=== PATIENT | male | born 1955 | race Caucasian/White ===

== ENCOUNTER → 2016-12-20 | Outpatient (CLI) | payer OTHER ==
[~2016-12-20] MED LIST: GADOBUTROL 10 ML VIAL IVP ONE
== END ==
LOC: FIMAGING 07:45
PROVIDERS: ATTEND Internal Medicine Hematology & Oncology
DX: C71.2 Malignant neoplasm of temporal lobe (principal)
CPT/HCPCS: A9585

== ENCOUNTER → 2017-03-26 | Outpatient (CLI) | payer OTHER | LOC: FIMAGING 07:34 | PROVIDERS: ATTEND Internal Medicine Hematology & Oncology | DX: C71.2 Malignant neoplasm of temporal lobe (principal); R56.9 Unspecified convulsions | CPT/HCPCS: A9585 ==

== ENCOUNTER 2017-04-01 13:58 | Inpatient (IN) | payer OTHER ==
[2017-04-01] MEDS ORDERED: VANCOMYCIN 1 GM in NS 250 ML IV ONE (15:03)
[2017-04-01] MEDS ORDERED: IOPAMIDOL (ISOVUE-300) 100 ML BTL ONE (15:11)
[2017-04-01 15:19] LABS: PLATELET COUNT 194 10^3/uL (150-400)
--- NOTE | 2017-04-01 15:29 | EDPHY ---
H & P Stated Complaint: large, painful bump near buttocks Source: Patient - Medical/Surgical History Hx Asthma: No Hx Chronic Respiratory Disease: No Hx Diabetes: No Hx Cardiac Disease: No Hx Renal Disease: No Hx Cirrhosis: No Hx Alcoholism: No Hx HIV/AIDS: No Hx Splenectomy or Spleen Trauma: No Other PMH: Brain CA, thyroid - Social History Smoking Status: Never smoked Time Seen by Provider: 04/01/17 14:39 HPI/ROS: CHIEF COMPLAINT: Boil and buttock History by patient HISTORY OF PRESENT ILLNESS: 61-year-old man with a history of brain cancer currently on maintenance chemotherapy every 2 weeks presents complaining of pain redness and swelling of his right buttock near his anus. Patient states he began with what he thought was a pimple several weeks ago but over the past 2 or 3 days has gotten significantly worse and more painful. He has been unable to defecate due to pain. He denies any fever chills, nausea vomiting or abdominal pain. He states that he thinks it has been "something going on the area for quite some time. He denies any drainage from the area. He is covered it with bacitracin but applied no other treatments. REVIEW OF SYSTEMS: As in HPI, and all other systems reviewed and are negative (Radha Salcedo) - Physical Exam Exam: General Appearance: Alert, nontoxic-appearing. Eyes: Pupils equal and round, no pallor or injection. Mouth: Mucous membranes moist. Respiratory: Normal, effort, lungs are clear to auscultation. No wheezes, rales or rhonchi. Cardiovascular: Regular rate and rhythm. S1, S2, no murmurs, gallops or rubs appreciated Gastrointestinal: bowel sounds present, Abdomen is soft and is nondistended nontender, no masses Rectal: Positive 10 x 10 cm area of erythema, tenderness and induration in the area between 7 and 9 o'clock but no obvious fluctuance, positive anterior tenderness on rectal exam Back: No CVA tenderness, no bony tenderness Neurological: Awake, alert and oriented x 3, no pronator drift, normal gait, no pronator drift Skin: Warm and dry, no rashes. Musculoskeletal: No deformities or tenderness. Extremities: full range of motion, no edema Psychiatric: Patient has normal affect, there is no agitation. (Radha Salcedo) Constitutional: Initial Vital Signs Temperature (C) 36.5 C 04/01/17 14:14 Heart Rate 96 04/01/17 14:14 Respiratory Rate 20 04/01/17 14:14 Blood Pressure 147/108 H 04/01/17 14:14 O2 Sat (%) 95 04/01/17 14:14 O2 Delivery Mode Room Air O2 (L/minute) 2 Allergies/Adverse Reactions: Augmentin Allergy (Unknown, Uncoded 04/01/17 14:13) Home Medications: Medication Instructions Recorded Atorvastatin Calcium [Lipitor 20 04/01/17 mg (*)] LEVETIRACETAM [Keppra 1000 mg] 04/01/17 LEVOTHYROXINE SODIUM [Tirosint 04/01/17 50mcg] Medical Decision Making - Diagnostics Imaging Results: Imaging Impressions Abdomen CT 04/01/17 15:07 Impression: 1. Inflammation and phlegmon in the low right gluteal crease. No well defined abscess/fluid collection. 2. No intraabdominal inflammatory process, free fluid, or abscess. 3. Small, probably benign 3 x 4 mm right middle lobe pulmonary nodule. Findings discussed with emergency department physician, Dr. Fink on April 01, 2017 at 1658 hours. ED Course/Re-evaluation: 61-year-old man immuno per suppressed due to his brain tumor presents with area of perirectal versus pearl anus cellulitis versus abscess. I have ordered IV blood cultures, labs and IV antibiotics and CT scan to better delineate the lesion. I will transfer care to Dr. Fink for final disposition pending results of the CT scan. (Radha Salcedo) CT scan with evidence of induration, cannot rule out very early abscess however no obvious fluid collection. No involvement within the abdomen and pelvis, anal and rectal wall do not appear to be involved. Impression Cellulitis Possibly impending abscess Patient has been given Levaquin, Flagyl, vancomycin Discussed with Dr. Han Godfrey Patient to be admitted at [facility] (Rashmi Fink) - Data Points Laboratory Results: Laboratory Results 04/01/17 15:00 04/01/17 15:00 04/01/17 04/01/17 04/01/17 15:34 15:00 15:00 WBC 8.50 10^3/uL 10^3/uL (3.80-9.50) RBC 4.22 10^6/uL L 10^6/uL (4.40-6.38) Hgb 14.8 g/dL g/dL (13.7-17.5) Hct 41.5 % % (40.0-51.0) MCV 98.3 fL fL (81.5-99.8) MCH 35.1 pg H pg (27.9-34.1) MCHC 35.7 g/dL g/dL (32.4-36.7) RDW 12.8 % % (11.5-15.2) Plt Count 194 10^3/uL 10^3/uL (150-400) MPV 9.2 fL fL (8.7-11.7) Neut % (Auto) 83.4 % H % (39.3-74.2) Lymph % (Auto) 6.4 % L % (15.0-45.0) Shelby % (Auto) 9.3 % % (4.5-13.0) Eos % (Auto) 0.6 % % (0.6-7.6) Baso % (Auto) 0.1 % L % (0.3-1.7) Nucleat RBC Rel Count 0.0 % % (0.0-0.2) Absolute Neuts (auto) 7.09 10^3/uL H 10^3/uL (1.70-6.50) Absolute Lymphs (auto) 0.54 10^3/uL L 10^3/uL (1.00-3.00) Absolute Monos (auto) 0.79 10^3/uL 10^3/uL (0.30-0.80) Absolute Eos (auto) 0.05 10^3/uL 10^3/uL (0.03-0.40) Absolute Basos (auto) 0.01 10^3/uL L 10^3/uL (0.02-0.10) Absolute Nucleated RBC 0.00 10^3/uL 10^3/uL (0-0.01) Immature Gran % 0.2 % % (0.0-1.1) Immature Gran # 0.02 10^3/uL 10^3/uL (0.00-0.10) VBG Lactic Acid 1.1 mmol/L mmol/L (0.7-2.1) Sodium 137 mEq/L mEq/L (135-145) Potassium 4.1 mEq/L mEq/L (3.5-5.2) Chloride 100 mEq/L mEq/L (97-110) Carbon Dioxide 25 mEq/l mEq/l (22-31) Anion Gap 12 mEq/L mEq/L (8-16) BUN 17 mg/dL mg/dL (7-23) Creatinine 0.9 mg/dL mg/dL (0.7-1.3) Estimated GFR > 60 Glucose 126 mg/dL H mg/dL (70-100) Calcium 8.7 mg/dL mg/dL (8.5-10.4) Medications Given: Discontinued Medications Hydromorphone HCl (Dilaudid) 1 mg IVP EDNOW ONE Stop: 04/01/17 15:53 Last Admin: 04/01/17 15:55 Dose: 1 mg Hydromorphone HCl (Dilaudid) 1 mg IVP ONCE ONE Stop: 04/01/17 18:21 Last Admin: 04/01/17 18:30 Dose: 0.5 mg Levofloxacin/Dextrose (Levaquin 750 Mg (Premix)) 150 mls @ 100 mls/hr IV EDNOW ONE PRN Reason: Protocol Stop: 04/01/17 16:35 Last Admin: 04/01/17 15:45 Dose: 150 mls Metronidazole/Sodium Chloride (Flagyl 500 Mg (Premix)) 100 mls @ 100 mls/hr IV EDNOW ONE PRN Reason: Protocol Stop: 04/01/17 16:05 Last Admin: 04/01/17 16:34 Dose: 100 mls Vancomycin HCl 1 gm/ Sodium (Chloride) 250 mls @ 250 mls/hr IV EDNOW ONE PRN Reason: Protocol Stop: 04/01/17 16:02 Last Admin: 04/01/17 16:51 Dose: 250 mls
[2017-04-01] MEDS ORDERED: HYDROmorphONE/DILAUDID 1 MG/ML INJ ONE ×2 (15:53→18:33)
[2017-04-01] MEDS: HYDROmorphONE/DILAUDID 1 MG/ML INJ IVP ONE ×2 (15:55→18:35)
[2017-04-01] MEDS ORDERED: HYDROmorphONE/DILAUDID 1 MG/ML INJ IVP ONE (18:20)
[2017-04-01] MEDS ORDERED: HYDROmorphONE/DILAUDID 1 MG/ML INJ IVP PRN ×2 (21:09→22:35)
[2017-04-01] MEDS ORDERED: ACETAMINOPHEN 325 MG TAB PO PRN (21:09)
[2017-04-01] MEDS ORDERED: ONDANSETRON DISINTEGRATING 4 MG TAB PO PRN (21:09)
[2017-04-01] MEDS ORDERED: oxyCODONE IR 5 MG TAB PO PRN (21:09)
[2017-04-01] MEDS ORDERED: ONDANSETRON 4 MG/2 ML VIAL IVP PRN ×2 (21:09→22:35)
[2017-04-01] MEDS: ERTAPENEM 1 GM VIAL IV SCH (21:46)
--- NOTE | 2017-04-01 21:46 | SOAPPROG ---
SOAP Progress Note Assessment/Plan: Assessment: 61-YEAR-OLD MALE UNDERGOING CHEMO AND RADIATION FOR AN ASTROCYTOMA DEVELOPED SORENESS IN HIS RIGHT BUTTOCK FOR THE LAST 3 DAYS WITH A LOW-GRADE FEVER AND SEVERE TENDERNESS WBC IS NORMAL HAD A SIMILAR EPISODE 3 YEARS AGO WHICH RESOLVED WITHOUT SURGERY CHEST CLEAR/COR REGULAR RHYTHM/ ABDOMEN SOFT/ RECTAL EXAM REVEALS A TENDER FLUCTUANT ERYTHEMATOUS AREA IN THE RIGHT BUTTOCK IMPRESSION RIGHT PERIRECTAL ABSCESS Plan: INCISION AND DRAINAGE IN THE OR 04/01/17 21:42 Objective: Vital Signs Temp Pulse Resp BP Pulse Ox 37.3 C 92 18 136/74 H 91 L 04/01/17 20:28 04/01/17 20:28 04/01/17 20:28 04/01/17 20:28 04/01/17 20:28 03/31/17 04/01/17 04/02/17 05:59 05:59 05:59 Intake Total 450 Balance 450 ICD10 Worksheet Patient Problems: Problems Problem Status Onset Perirectal abscess Acute - ICD10 Problem Qualifiers (1) Perirectal abscess
--- NOTE | 2017-04-01 21:46 | GHP ---
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 It sounds like he has had problems here in the past, but he has no admissions to this hospital, no s urgeries. He has had some subjective fevers and chills. He says his last bowel movement was a coupl e days ago, and it was not necessarily painful. He thought there was a pimple there over the last co uple weeks, last 2-3 days gotten worse and more painful. Per the ER, they said he is unable to defec ate due to pain. This is a slightly different story than he gives me. There have been no fever, chi lls. There has been no drainage from the area. He is covered with bacitracin. REVIEW OF SYSTEMS: Complete 10-point review of systems conducted, negative except as noted in the HP I. PAST MEDICAL HISTORY: Astrocytoma of the thalamus, no surgery. Has been receiving Avastin. His las t dexamethasone was quite some time ago. ALLERGIES: Augmentin, which he gets a rash from. MEDICATIONS ARE: Atorvastatin, levetiracetam, levothyroxine. SOCIAL HISTORY: Occasional alcohol. No tobacco. 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 FAMILY HISTORY: Reviewed and unremarkable. PHYSICAL EXAMINATION: VITAL SIGNS: Temp 37.3, blood pressure 136/74, pulse 92, breathing 18 times a minute, 91% on room air. GENERAL: Acute distress. Flat affect. HEENT: Sclerae anicteric. Oropharynx clear. Mucous membranes are moist. NECK: Supple. No lymphadenopathy or JVD. LUNGS: Clear to auscultation bilaterally. HEART: S1, S2. ABDOMEN: Soft, nontender, nondistended. LOWER EXTREMITIES: Without edema. Calves are nontender. SKIN: Without rash. His exam shows indurated area in the lower medial quadrant of his buttock. I d o not necessarily fluctuance, but exam is somewhat limited by pain. It is indurated and w arm and erythematous. LABORATORY DATA: White count 8.5, hematocrit 41, platelets are 194,000. Venous lactate 12.1. Sodiu m 137, potassium 4.1, chloride 100, bicarb 25, BUN 17, creatinine 0.9, glucose 126. CT of the abdomen shows phlegmon without true abscess in the right lower gluteal crease. There is no free fluid in the abdomen noted, no abscess in the abdomen. I have discussed the case with Dr. Clint Castañeda. ASSESSMENT/PLAN: A 61-year-old gentleman with astrocytoma here with buttock cellulitis with concern for potential abscess requiring incision and drainage. 1. Cellulitis. He is started on vancomycin, levofloxacin, Flagyl, which would be reasonable, but I transitioned him to ertapenem, Flagyl. 2. Question abscess. I will have Surgery see him tonight. We did discuss his Avastin therapy. 3. Code status. Do not resuscitate. 4. Prophylaxis. Pharmacologic prophylaxis indicated. Start on low-molecular heparin. DISPOSITION: Inpatient status. /[id number]/MODL
[2017-04-01] MEDS: NS 1,000 ML IV SCH (21:57)
--- NOTE | 2017-04-01 22:19 | PDANEPAE ---
ANE History of Present Illness here for I and D buttock ANE Past Medical History - Cardiovascular History Hx Hypertension: No Hx Arrhythmias: No Hx Chest Pain: No Hx Coronary Artery / Peripheral Vascular Disease: No Hx CHF / Valvular Disease: No Hx Palpitations: No - Pulmonary History Hx COPD: No Hx Asthma/Reactive Airway Disease: No Hx Recent Upper Respiratory Infection: No Hx Oxygen in Use at Home: No Hx Sleep Apnea: No Sleep Apnea Screening Result - Last Documented: Positive - Endocrine History Hx Diabetes: No Hypothyroid: Yes Hyperthyroid: No Obesity: no - Renal History Hx Renal Disorders: No - Liver History Hx Hepatic Disorders: No - Neurological & Psychiatric Hx Hx Neurological and Psychiatric Disorders: Yes Neurological / Psychiatric History Comment: astrocytoma diagnosed 2013 on keppra for seizures - Cancer History Hx Cancer: Yes - Chronic Pain History Chronic Pain: No ANE Review of Systems Review of systems is: negative Review of Systems: ANE Patient History - Allergies Allergies/Adverse Reactions: Augmentin Allergy (Severe, Uncoded 04/01/17 22:12) Hives - Home Medications Home medications: home medication list seen and reviewed Home Medications: Levothyroxine [Synthroid 125 mcg (*)] 125 mcg PO DAILY06 04/01/17 [Last Taken Unknown] Multivitamins [Multivitamin (*)] 1 each PO DAILY 04/01/17 [Last Taken Unknown] Rosuvastatin Calcium [Rosuvastatin Calcium] 5 mg PO HS 04/01/17 [Last Taken Unknown] levETIRAcetam [Levetiracetam] 500 mg PO BID 04/01/17 [Last Taken Unknown] - NPO status NPO Status: no food or drink >8 hours NPO Since - Liquids (Date): 04/01/17 NPO Since - Liquids (Time): 21:35 NPO Since - Solids (Date): 04/01/17 NPO Since - Solids (Time): 21:35 - Anes Hx Anes Hx: no prior problems - Smoking Hx Smoking Status: Never smoked ANE Labs/Vital Signs - Labs Result Diagrams: 04/01/17 15:00 04/01/17 15:00 - Vital Signs Vital Signs: reviewed preoperatively; see RN documention for details Blood Pressure: 136/74 Heart Rate: 92 Respiratory Rate: 18 O2 Sat (%): 91 Height: 172.72 cm Weight: 84.9 kg ANE Physical Exam - Airway Neck exam: FROM Mallampati Score: Class 1 - Pulmonary Pulmonary: no respiratory distress - Cardiovascular Cardiovascular: regular rate and rhythym - ASA Status ASA Status: III, E ANE Anesthesia Plan Anesthesia Plan: GA w LMA
[2017-04-01] MEDS ORDERED: BUPIVACAINE 0.5% 30 ML SDV ONE (22:27)
[2017-04-01] MEDS ORDERED: NALOXONE HCL 0.4 MG/ML INJ IVP PRN (22:35)
[2017-04-01] MEDS ORDERED: DEXAMETHASONE 4 MG/ML VIAL IVP PRN (22:35)
[2017-04-01] MEDS ORDERED: LR 500 ML IV PRN (22:35)
[2017-04-01] MEDS ORDERED: PROMETHAZINE HCL 25 MG/ML INJ IVP PRN (22:35)
[2017-04-01] MEDS ORDERED: ALBUTEROL 3 ML DEYVIAL IH PRN (22:35)
[2017-04-01] MEDS ORDERED: fentaNYL 100 MCG/2 ML INJ IVP PRN (22:35)
[2017-04-01] MEDS ORDERED: PROPOFOL/EMULSION 500 MG/50 ML BOTTLE IV ONE (22:36)
[2017-04-01] MEDS ORDERED: fentaNYL 100 MCG/2 ML INJ ONE (22:39)
[2017-04-01] MEDS ORDERED: DEXAMETHASONE 4 MG/ML VIAL ONE (22:47)
[2017-04-01] MEDS ORDERED: ONDANSETRON 4 MG/2 ML VIAL ONE (22:47)
--- NOTE | 2017-04-01 23:22 | POSTOPPROG ---
Post Op Note Date of Operation: 04/01/17 Surgeon: Pop Castañeda Anesthesiologist: BRANDI Anesthesia: GET(General Endotracheal) Pre-op Diagnosis: RT PERIRECTAL ABSCESS Post-op Diagnosis: SAME Indication: PAIN, INFECTION Procedure: I&D RT PERIRECTAL ABSCESS Findings: 30CC ABSCESS, NO FISTULA IDENTIFIED Inf/Abcess present in the surg proc area at time of surgery?: Yes Depth: Deep Incisional (Fascial) EBL: Minimal Complications: 0 Specimen(s): C&S
--- NOTE | 2017-04-01 23:27 | POSTANESTH ---
Post Anesthetic Evaluation Cardiovascular Status: Normal, Stable Respiratory Status: Normal, Stable Level of Consciousness/Mental Status: Mildly Sleepy, Arousable Pain Control: Adequate, Prn Tx Ordered Nausea/Vomiting Control: Adequate, Prn Tx Ordered Complications Possibly Related to Anesthesia: None Noted
[2017-04-01] MEDS ORDERED: levETIRAcetam 500 MG TAB PO SCH (23:39)
[2017-04-01] MEDS ORDERED: D5W 1/2 NS W/ 20 KCl/L 1,000 ML IV SCH (23:45)
[2017-04-02] MEDS: levETIRAcetam 500 MG TAB PO SCH ×3 (00:37→20:44)
[2017-04-02] MEDS: KETOROLAC 15 MG/1 ML SDV IVP SCH ×5 (00:37→23:03)
[2017-04-02] MEDS: NS 1,000 ML IV SCH (04:57)
[2017-04-02 05:05] LABS: PLATELET COUNT 173 10^3/uL (150-400)
[2017-04-02 05:14] LABS: INR 1.05 (0.83-1.16); PROTIME(PATIENT) 13.9 SEC (12.0-15.0)
[2017-04-02] MEDS: VANCOMYCIN HCL/NORMAL SALINE 250 ML IV SCH ×2 (05:14→17:36)
[2017-04-02] MEDS: LEVOTHYROXINE 125 MCG TAB PO SCH (05:15)
[2017-04-02] MEDS: ENOXAPARIN 40 MG/0.4 ML SYR SC SCH (08:18)
[2017-04-02] MEDS: MULTIVITAMINS 1 EACH TAB PO SCH (08:18)
[2017-04-02] MEDS: ERTAPENEM 1 GM VIAL IV SCH (08:21)
--- NOTE | 2017-04-02 08:23 | HOSPPROG ---
Hospitalist Progress Note Assessment/Plan: Patient is a 61-year-old gentleman. He has a past medical history of astrocytoma. He presented to the emergency room with several days of pain in his buttock area. Today is my 1st encounter with the patient. Chart reviewed. * right perirectal abscess Status post I&D On ertapenem and vanc ruslan w surgical team will ask ID to weigh in, patient would like to be dc today has significant erythema * history of astrocytoma on Avastin therapy *Plan: Dr Gary luo ID to see Subjective: Ivan has pain at the right gluteus area, anxious to go home. Objective: Vital Signs Temp Pulse Resp BP Pulse Ox 36.6 C 64 18 122/87 H 96 04/02/17 08:00 04/02/17 08:00 04/02/17 08:00 04/02/17 08:00 04/02/17 08:00 Microbiology 04/01/17 23:05 Mycobacterial Smear (CARLOS) - Final Buttock - Eswab Mycobacterial Culture - Final Laboratory Results 04/02/17 04:25 04/02/17 04:25 04/01/17 04/02/17 04/03/17 05:59 05:59 05:59 Intake Total 1100 Output Total 5 Balance 1095 PT 13.9 SEC (12.0-15.0) 04/02/17 04:25 INR 1.05 (0.83-1.16) 04/02/17 04:25 - Physical Exam Constitutional: no apparent distress, appears nourished Eyes: PERRL Ears, Nose, Mouth, Throat: hearing normal Respiratory: no respiratory distress Gastrointestinal: normoactive bowel sounds Skin: warm, other (right gluteus drain removed by surgery, tunnels in, surrounding area with redness, swelling) Musculoskeletal: full muscle strength Neurologic: AAOx3 Psychiatric: interacting appropriately ICD10 Worksheet Patient Problems: Problems Problem Status Onset Perirectal abscess Acute
[2017-04-02] MEDS ORDERED: levETIRAcetam 500 MG TAB PO SCH (09:00)
--- NOTE | 2017-04-02 09:36 | ASMTCASEMG ---
Living Arrangements What is your living Answers: With Spouse arrangement? Who do you live with? Type Of Residence What kind of residence do Answers: House you live in? Discharge Plan Comments Coordination Status Comments Notes: Pt is a 61 y/o man admitted for right gluteal cellulitis. Dr. Castañeda performed drainage of perirectal abscess. OT has been ordered and awaiting recommendations. Pt will most likely d/c independent when medically stable. CM available for d/c needs. Plan: Independent Date Signed: 04/02/2017 09:35 AM Electronically Signed By:SEAN Murray
--- NOTE | 2017-04-02 10:32 | GCON ---
[f rep st] CONSULTATION DATE OF CONSULTATION: 04/01/2017 HISTORY OF PRESENT ILLNESS: A 61-year-old male who is undergoing chemotherapy and radiation therapy for an astrocytoma. He presents today with pain in his right buttock, which was approximately 3 days in duration. Appears to have a very tender and fluctuant area. He had a similar episode 2 to 3 years ago which resolved spontaneously. He was seen at this time for I and D of this area. PAST MEDICAL HISTORY: Astrocytoma for which he has had no surgery. No other major surgeries or hospitalizations. ALLERGIES: Augmentin. MEDICATIONS: Lipitor, Keppra, and Synthroid. REVIEW OF SYSTEMS: No major other medical problems on a full 10-point review of systems. Specifically, he does not smoke. Denies any cardiac history. FAMILY HISTORY: Noncontributory. PHYSICAL EXAMINATION: GENERAL: An alert, cooperative 61-year-old male in no acute distress. VITAL SIGNS: He has low-grade temperature. CHEST: Clear. CARDIAC: Regular rhythm. ABDOMEN: Soft and nontender. GENITALIA: Normal. EXTREMITIES: Benign with full pulses, full range of motion. RECTAL: Reveals a fluctuant erythematous area in his right buttock. IMPRESSION: Perirectal abscess. PLAN: I and D. Risks and options fully discussed. /[id number]/MODL MTDD
--- NOTE | 2017-04-02 10:58 | PDMN ---
Medical Necessity Medical necessity: Patient meets inpatient criteria per physician note and MCG M -70 Cellulitis (hx of astrocytoma on Avastin therapy, presents with R buttock pain, subjective fevers and chills; CT shows phlegmon R gluteal fold; anticipated LOS > 2 midnights for emergent I&D of R perirectal abscess by surgery and ongoing IV antibiotics.)
--- NOTE | 2017-04-02 12:16 | SOAPPROG ---
SOAP Progress Note Assessment/Plan: Assessment/Plan: 61 Y M hx of astrocytoma on avastin s/p I&D of perianal abscess. POD#1. Changed dressing today. Wound is clean. Patient is very tender. Seen with hospitalist. Possible ID consult. Possibly home tomorrow if erythema and induration improves. S: pain is better, but dressing change was very painful. no fever. O: alert, nad, nontoxic appearing mmm, no jaundice no wob wound: +residual erythema and induration. no malodor. wound clean but narrow and difficult to view base. 04/02/17 12:16 Objective: Vital Signs Temp Pulse Resp BP Pulse Ox 36.6 C 67 16 122/77 H 92 04/02/17 12:00 04/02/17 12:00 04/02/17 12:00 04/02/17 12:00 04/02/17 12:00 Microbiology 04/01/17 23:05 Gram Stain - Final Buttock - Eswab 04/01/17 23:05 Mycobacterial Smear (CARLOS) - Final Buttock - Eswab Mycobacterial Culture - Final Laboratory Results 04/02/17 04:25 04/02/17 04:25 04/01/17 04/02/17 04/03/17 05:59 05:59 05:59 Intake Total 1100 Output Total 5 Balance 1095 PT 13.9 SEC (12.0-15.0) 04/02/17 04:25 INR 1.05 (0.83-1.16) 04/02/17 04:25 ICD10 Worksheet Patient Problems: Problems Problem Status Onset Perirectal abscess Acute
[2017-04-02] MEDS ORDERED: MAGNESIUM HYDROXIDE 30 ML UDCUP PO PRN (12:19)
[2017-04-02] MEDS ORDERED: LACTULOSE 20 GM/30 ML UDCUP PO PRN (12:19)
[2017-04-02] MEDS ORDERED: BISACODYL 10 MG SUPP PR PRN (12:19)
[2017-04-02] MEDS: SENNOSIDES/DOCUSATE SODIUM TAB PO SCH ×2 (13:55→20:45)
--- NOTE | 2017-04-02 14:45 | ASMTCMCOM ---
CM Note CM Note Notes: Therapies have been ordered and they are recommending inpatient rehab. CM met w/ pt for dispo planning. Pt is not agreeable to going to SNF or inpatient rehab. Pt would like to d/c home. Pt is agreeable to continuing w/ [facility], PT, OT and RN. CM to follow. Plan: [facility], PT, OT, RN Date Signed: 04/02/2017 02:44 PM Electronically Signed By:SEAN Murray
[2017-04-02] MEDS: POLYETHYLENE GLYCOL 3350 17 GM PKT PO SCH (15:54)
[2017-04-02] MEDS ORDERED: TEMAZEPAM 15 MG CAP PO PRN (17:11)
--- NOTE | 2017-04-02 19:39 | GCON ---
[f rep st] CONSULTATION INPATIENT INFECTIOUS DISEASE CONSULTATION REFERRING PHYSICIAN: Pop Castañeda MD REASON FOR REFERRAL: Perirectal abscess. HISTORY OF PRESENT ILLNESS: Patient is a 61-year-old male who was admitted to [facility] through the emergency room on 04/01/17. Patient is dealing with an overlying diagnosis of astrocy veto. He is currently taking Avastin chemotherapy. He presented with a several-day history of pain in his buttock. He does have a history of having the same issue which did remit spontaneously. On t his visit, he admitted to fevers and chills. Patient denied any drainage from the area. Patient was seen by General Surgery who performed an incision and drainage in the evening of 04/01/17. Patient is currently resting comfortably in his hospital bed. He is accompanied by his . Reports no fev ers or chills overnight. Patient had been covered with ertapenem and vancomycin empirically. PAST MEDICAL HISTORY: Astrocytoma. Patient has not had surgery. PAST SURGICAL HISTORY: None noted. MEDICATIONS: Antibiotics. 1. Vancomycin. 2. Ertapenem. ALLERGIES: Patient notes a rash to penicillin. SOCIAL HISTORY: Occasional alcohol use. No tobacco use. FAMILY HISTORY: Noncontributory. REVIEW OF SYSTEMS: Other than the that detailed above in History of Present Illness, comprehensive 1 0-system review is negative. PHYSICAL EXAMINATION: VITAL SIGNS: Temperature maximum 36.9, temperature current 36.7, heart rate i s 60, respiratory rate is 18, blood pressure is 118/72. GENERAL: Patient is a well-formed, well-nou rished older male in no acute distress. He is not toxic in appearance. He is alert and oriented x3. He has a pleasant demeanor. HEENT: Normocephalic for age. Atraumatic. No scleral icterus. No o ral lesion. No drainage from the nares. Eyes: Lids and conjunctivae are within normal limits. Pupils are equal and round bilaterally. NECK : Supple. No meningismus. SKIN: Warm and dry to the touch. No rash or lesion noted. Patient has operative dressing over the perirectal region. LABORATORY DATA: Patient has a CBC dated 04/02/17, shows white blood cell count of 9.6, hemoglobin o f 13.3, hematocrit 38.3, platelet count of 173. Differential is left shifted with 95% segmented neut rophils. Serum chemistries on 04/02/17, show sodium of 139, potassium 4.7, chloride of 104, bicarbon ate of 21, BUN of 18, creatinine 1.0. Vancomycin trough on 04/02/17, is 6.1. MICROBIOLOGIC DATA: Patient has operative culture dated 04/01/17. Gram stain shows 1+ gram-positive cocci. Cultures no growth to date. ASSESSMENT: Perirectal abscess, status post incision and drainage. Patient is covered with vancomyc in and ertapenem. Given the gram-positive cocci on Gram stain, we will continue with both the vancom ycin and ertapenem in the short term. Will wait to see if the culture allows us to be more specific with therapy. I explained this in detail to the patient. Patient is very eager to be discharged shivam e. If we get identification from the culture, it is hopeful that we could amend his antibiotic use t o a focused oral agent. PLAN: 1. Continue vancomycin and ertapenem for now. 2. Follow up on culture data. /[id number]/MODL
--- NOTE | 2017-04-02 20:29 | GOP ---
[f rep st] OPERATIVE REPORT DATE OF OPERATION: 04/01/2017 SURGEON: Pop Castañeda MD PREOPERATIVE DIAGNOSIS: Right perirectal abscess. POSTOPERATIVE DIAGNOSIS: Right perirectal abscess. PROCEDURE PERFORMED: Exam under anesthesia, and incision and drainage of perirectal abscess. FINDINGS: Patient was found to have a 30 cc abscess in the right perirectal space. No fistula could be identified. DESCRIPTION OF PROCEDURE: The patient was taken to the operating room where he received satisfactory general endotracheal anesthesia by Dr. Tuttel, placed in lithotomy position, prepped and draped in u sual sterile fashion. A transverse incision was made over the fluctuant area in the right buttock an d a large amount of pus was freed. This was cultured, suctioned clear and irrigated clear. The cavi ty was examined. No fistula tract to the rectum could be identified either from the abscess cavity o r intra-anally on inspection. The area was probed but no connection could be demonstrated. Hemostas is was obtained. The wound was infiltrated with Marcaine and then packed with iodoform gauze. He to lerated the procedure well. There were no complications. He was taken to the recovery room in good condition. /[id number]/MODL
[2017-04-02] MEDS: MELATONIN 3 MG TAB PO SCH (20:44)
[2017-04-02] MEDS: ROSUVASTATIN CALCIUM 10 MG TAB PO SCH (20:45)
[2017-04-03 05:02] LABS: PLATELET COUNT 164 10^3/uL (150-400)
[2017-04-03] MEDS: VANCOMYCIN HCL/NORMAL SALINE 250 ML IV SCH ×2 (05:03→16:56)
[2017-04-03] MEDS: KETOROLAC 15 MG/1 ML SDV IVP SCH ×4 (05:03→23:59)
[2017-04-03] MEDS: LEVOTHYROXINE 125 MCG TAB PO SCH (05:03)
[2017-04-03] MEDS: POLYETHYLENE GLYCOL 3350 17 GM PKT PO SCH (08:53)
[2017-04-03] MEDS: SENNOSIDES/DOCUSATE SODIUM TAB PO SCH ×2 (08:54→20:03)
[2017-04-03] MEDS: MULTIVITAMINS 1 EACH TAB PO SCH (08:54)
[2017-04-03] MEDS: levETIRAcetam 500 MG TAB PO SCH ×2 (08:54→20:04)
[2017-04-03] MEDS: ERTAPENEM 1 GM VIAL IV SCH (08:58)
[2017-04-03] MEDS: ENOXAPARIN 40 MG/0.4 ML SYR SC SCH (09:08)
--- NOTE | 2017-04-03 09:54 | HOSPPROG ---
Hospitalist Progress Note Assessment/Plan: Patient is a 61-year-old gentleman. He has a past medical history of astrocytoma. He presented to the emergency room with several days of pain in his buttock area. * right perirectal abscess Status post I&D On ertapenem and vanc evaluated w surgical team * history of astrocytoma on Avastin therapy asked Dr Lassiter to see, concerned this is worsening he is falling more *Plan: will await input from ID and oncology, patient is very anxious to be discharged. Subjective: Ivan is feeling much better, wants to leave. Objective: Vital Signs Temp Pulse Resp BP Pulse Ox 36.4 C 55 L 16 119/67 96 04/03/17 07:24 04/03/17 07:24 04/03/17 07:24 04/03/17 07:24 04/03/17 07:24 Microbiology 04/01/17 23:05 Gram Stain - Final Buttock - Eswab 04/01/17 23:05 Mycobacterial Smear (CARLOS) - Final Buttock - Eswab Mycobacterial Culture - Final Laboratory Results 04/03/17 04:24 04/03/17 04:24 04/02/17 04/03/17 04/04/17 05:59 05:59 05:59 Intake Total 1100 Output Total 5 1150 Balance 1095 -1150 PT 13.9 SEC (12.0-15.0) 04/02/17 04:25 INR 1.05 (0.83-1.16) 04/02/17 04:25 - Physical Exam Constitutional: no apparent distress, appears nourished, not in pain Eyes: PERRL Ears, Nose, Mouth, Throat: hearing normal Cardiovascular: regular rate and rhythym Respiratory: no respiratory distress Skin: warm Musculoskeletal: generalized weakness Neurologic: AAOx3 Psychiatric: flat affect ICD10 Worksheet Patient Problems: Problems Problem Status Onset Perirectal abscess Acute
--- NOTE | 2017-04-03 13:55 | PCMIDPN ---
Assessment/Plan: Assessment/Plan: 1. Perirectal abscess: - s/p I & D on 04/01/17 - GS with [facility], cultures so far ngtd. still yound -agree that wound needs packing. -Discussed plan of care with pateint, family at bedside -continue with abran mcnair for now - hopefully can narrow down tomorrow. -care coordinated with hospitalist team diana barrera Subjective: afebrile. less pain overall but felt tipping machine tender. denies abd pain or diarrhea. denies sob. family at bedside. Objective: Vital Signs Temp Pulse Resp BP Pulse Ox 36.6 C 59 L 18 137/71 H 97 04/03/17 11:26 04/03/17 11:26 04/03/17 11:26 04/03/17 11:26 04/03/17 11:26 Microbiology 04/01/17 23:05 Gram Stain - Final Buttock - Eswab Laboratory Results 04/03/17 04:24 04/03/17 04:24 04/02/17 04/03/17 04/04/17 05:59 05:59 05:59 Intake Total 1100 Output Total 5 1150 Balance 1095 -1150 - Physical Exam General Appearance: alert, no apparent distress Respiratory: lungs clear Cardiac/Chest: regular rate, rhythm Extremities: No swelling Abdomen: normal bowel sounds, non-tender, soft, No distended Rectal: perirectal area (induration surrounding open wound. wound not packed at present.no drainage) Skin: No erythema ICD10 Worksheet Patient Problems: Problems Problem Status Onset Perirectal abscess Acute
--- NOTE | 2017-04-03 15:25 | SOAPPROG ---
SOAP Progress Note Assessment/Plan: Assessment/Plan: 61 Y M hx of astrocytoma on avastin s/p I&D of perianal abscess. POD#2. Seen with Dr. Castañeda today. Less erythema and induration, but not resolved. Appreciate ID and medicine input and care. Having more falls--likely 2/2 astrocytoma. Oncology to see patient today per IM. SNF recommended but patient wants to go home and accepts support--PT/OT/HHC. This is understandable. Wound care instructions added to d/c plan. Close follow outpatient f/u. S: pain is better O: alert, nad, nontoxic appearing mmm, no jaundice no wob wound: +residual erythema and induration. no malodor. 04/03/17 15:24 Objective: Vital Signs Temp Pulse Resp BP Pulse Ox 36.6 C 59 L 18 137/71 H 97 04/03/17 11:26 04/03/17 11:26 04/03/17 11:26 04/03/17 11:26 04/03/17 11:26 Microbiology 04/01/17 23:05 Gram Stain - Final Buttock - Eswab Laboratory Results 04/03/17 04:24 04/03/17 04:24 04/02/17 04/03/17 04/04/17 05:59 05:59 05:59 Intake Total 1100 Output Total 5 1150 Balance 1095 -1150 PT 13.9 SEC (12.0-15.0) 04/02/17 04:25 INR 1.05 (0.83-1.16) 04/02/17 04:25 ICD10 Worksheet Patient Problems: Problems Problem Status Onset Perirectal abscess Acute
--- NOTE | 2017-04-03 15:40 | ASMTCMCOM ---
CM Note CM Note Notes: Alicia from [facility] stopped by yesterday. Alicia report that pt was about to start palliative w/ them. Pt is being seen by Oncology today. Alicia reports that pts may be interested in hospice. CM spoke w/ Ann Baez NP regarding d/c POC. CM met w/ pt, and son for dispo planning. Pt reports that he would like to go home [facility]. Pt is still amendable to [facility] and palliative [facility]. Updates sent to [facility]. CM provided list of non skilled HC agencies. CM to follow. Plan: [facility], PT, OT, RN with private duty HC and [facility] palliative Date Signed: 04/03/2017 03:40 PM Electronically Signed By:SEAN Murray
--- NOTE | 2017-04-03 16:07 | GHP ---
[f rep st] HISTORY AND PHYSICAL DATE OF ADMISSION: 04/01/2017 REASON FOR VISIT: Recurrent brain tumor. HISTORY OF PRESENT ILLNESS: Ivan is a pleasant 61-year-old gentleman who is followed by my partner, Dr. Solomon Shah. 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 He was treated with a stereotactic biopsy. His tumor had an aggressive phenotype. He was treated with radiotherapy and temozolomide with additional temozolomide completed in August of 2014 . Unfortunately, he recently developed evidence of disease progression. He was started on bevacizumab. He has received a total of 3 treatments. His most recent treatment was given March 26. An MRI d one just prior to that treatment revealed persistent signal and neoplasm involving bilateral thalami, right basal ganglia, right anterior temporal lobe. There was a new region of restricted diffusion s uggesting progression of bilateral glioma. The patient's neurologic status has deteriorated. He has significant difficulty with his gait and so me mild short memory difficulties. At his last visit with Dr. Shah on March 26, the option of continuing Avastin with the potential for adding treatment with the Optune device was discussed. The option of palliative care was also d iscussed. The patient and his are quite realistic about his disease and prognosis. They have m et with [facility] palliative care. They are conflicted about whether to pursue more treatment or to pu rsue hospice care. The patient has been admitted with a right perirectal abscess which is status post I and D. He is cu rrently on antibiotic therapy. He will likely be discharged home either later today or tomorrow. Th e patient and his wanted to meet with me to discuss the state of his brain tumor. PAST MEDICAL HISTORY: Brain tumor, as outlined above. ALLERGIES: Augmentin. SOCIAL HISTORY: The patient is to Una. 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 Elie mari has 2 children who live locally. FAMILY MEDICAL HISTORY: Noncontributory. REVIEW OF SYSTEMS: As outlined above. Additionally, patient denies headache, visual change, or naus ea at the current time. Denies fevers or chills. PHYSICAL EXAMINATION: The patient requires the assistance of a walker to ambulate. He has a very at axic gait. He has a resolving perirectal abscess with no fluctuance or warmth currently. He is aler t, oriented, and appropriate. Pupils equal. IMAGING STUDIES: Most recent MRI report as outlined above. LABORATORY STUDIES: CBC from today, white count 7.1, hemoglobin 12.1, hematocrit 35.0, platelet coun t is 164,000. BUN 17, creatinine 0.9, calcium 8.4. IMPRESSION: 1. Recurrent brain tumor. 2. Perirectal abscess, status post incision and drainage. 3. Declining performance status. Ivan is a pleasant 61-year-old gentleman with a recurrent brain tumor. I reviewed his oncology chart and Dr. Shah's most recent progress note. I also reviewed his recent MRI from March 26. The patient and his are quite realistic about his prognosis. They understand the palliative int ent of treatment. They are very conflicted about whether to proceed with further treatment versus pr oceeding with hospice. Ivan's Una is concerned about his ability to stay at home. She still works president practicing urologist and is worried about him being at home alone. They have met with [facility]. We discussed the pros and cons of continuing treatment. We discussed the overall success rate of sec ond-line therapy for brain tumors, which is relatively low. I do agree that it is a bit early to ass ume that his tumor is not responding to Avastin. Throughout the course of the visit, Ivan seemed inclined to continue Avastin. They have researched t he Optune device and are not inclined to pursue this in addition to Avastin. I believe they would benefit from an advanced care planning session in our office to facilitate this discussion further. I will notify Dr. Shah of our meeting today. The patient will likely be disc harged either later today or tomorrow and has a scheduled office followup visit on Sunday. They had multiple questions today which were answered. At the close of the visit, they remained undecided as to which treatment course to pursue, but Ivan stated he was inclined to continue on Avastin over the short term. Total time for today's visit was approximately 45 minutes of which greater than 50% was spent in coun seling and care coordination. Copy requested to: Arnold Gordon DO /[id number]/MODL
[2017-04-03] MEDS: ROSUVASTATIN CALCIUM 10 MG TAB PO SCH (20:03)
[2017-04-03] MEDS: MELATONIN 3 MG TAB PO SCH (20:04)
[2017-04-04] MEDS: LEVOTHYROXINE 125 MCG TAB PO SCH (05:06)
[2017-04-04] MEDS: KETOROLAC 15 MG/1 ML SDV IVP SCH (05:06)
[2017-04-04] MEDS: VANCOMYCIN HCL/NORMAL SALINE 250 ML IV SCH (05:06)
[2017-04-04 05:13] VITALS: RESP 16; O2SAT 94
[2017-04-04 05:15] LABS: PLATELET COUNT 173 10^3/uL (150-400)
--- NOTE | 2017-04-04 08:31 | SOAPPROG ---
SOAP Progress Note Assessment/Plan: Assessment/Plan: 61 Y M hx of astrocytoma on avastin s/p I&D of perianal abscess. POD#3. Wound much improved--markedly softer, erythema and warmth resolving. Removed dressing. Viewed wound. Patient to shower and nurse to replace dressing. Possible d/c later today. F/u next week. Abx per ID. Thanks. Wound care instructions added to d/c plan. Close follow outpatient f/u. 04/04/17 08:29 Objective: Vital Signs Temp Pulse Resp BP Pulse Ox 36.6 C 55 L 16 141/87 H 94 04/04/17 04:00 04/04/17 04:00 04/04/17 04:00 04/04/17 04:00 04/04/17 04:00 Microbiology 04/01/17 23:05 Gram Stain - Final Buttock - Eswab Laboratory Results 04/04/17 05:00 04/04/17 05:00 04/03/17 04/04/17 04/05/17 05:59 05:59 05:59 Intake Total 250 Output Total 1150 Balance -1150 250 PT 13.9 SEC (12.0-15.0) 04/02/17 04:25 INR 1.05 (0.83-1.16) 04/02/17 04:25 ICD10 Worksheet Patient Problems: Problems Problem Status Onset Perirectal abscess Acute
[2017-04-04 08:34] VITALS: BP 147/90; PULSE 56; TEMP 97.3
[2017-04-04] MEDS: ERTAPENEM 1 GM VIAL IV SCH (08:53)
[2017-04-04] MEDS: ENOXAPARIN 40 MG/0.4 ML SYR SC SCH (08:53)
[2017-04-04] MEDS: MULTIVITAMINS 1 EACH TAB PO SCH (08:53)
[2017-04-04] MEDS: levETIRAcetam 500 MG TAB PO SCH (08:53)
[2017-04-04] MEDS: SENNOSIDES/DOCUSATE SODIUM TAB PO SCH (08:54)
[2017-04-04] MEDS: POLYETHYLENE GLYCOL 3350 17 GM PKT PO SCH (08:54)
--- NOTE | 2017-04-04 09:20 | PCMIDPN ---
Assessment/Plan: # Perirectal abscess with associated right gluteal cellulitis with minimal residual erythema. Antibiotic day 3. Cultures so far are unrevealing. WBC normalized --Plan antibiotics through April 08 (4 more days, already got dose of Invanz today). Recommend levofloxacin 750 mg daily plus metronidazole 500 three times daily, start 04/05/2017. Reviewed the risks associated with levofloxacin with patient and his over the phone --no ID follow-up needed # Allergy to Augmentin Antibiotics: Invanz plus vancomycin 04/01/17 23:05 Buttock -swab: gram stain 1+ GPC, culture negative 04/01/17 16:05 Blood Cx (2) NGTD Subjective: Patient anxious to leave. Minimal residual perirectal pain. Objective: Vital Signs Temp Pulse Resp BP Pulse Ox 36.3 C 56 L 16 147/90 H 94 04/04/17 08:00 04/04/17 08:00 04/04/17 08:00 04/04/17 08:00 04/04/17 08:00 Microbiology 04/01/17 23:05 Gram Stain - Final Buttock - Eswab Laboratory Results 04/04/17 05:00 04/04/17 05:00 04/03/17 04/04/17 04/05/17 05:59 05:59 05:59 Intake Total 250 Output Total 1150 Balance -1150 250 - Physical Exam General Appearance: alert, no apparent distress Respiratory: No accessory muscle use Extremities: No pedal edema Abdomen: other (minimal R medial gluteal erythema, very subtle induration) Skin: No rash Neuro/Psych: alert, normal mood/affect, oriented x 3 - Time Spent With Patient Time Spent with Patient: greater than 35 minutes (coordination of care with Ann Baez TIE IN MACHINE OPERATOR) Time Spent with Patient: Greater than 35 minutes spent on this patients care, greater than 50% of time spent counseling, educating, and coordinating care regarding the above mentioned plan. ICD10 Worksheet Patient Problems: Problems Problem Status Onset Perirectal abscess Acute
--- NOTE | 2017-04-04 09:58 | HOSPPROG ---
Hospitalist Progress Note Assessment/Plan: Patient is a 61-year-old gentleman. He has a past medical history of astrocytoma. He presented to the emergency room with several days of pain in his buttock area. * right perirectal abscess Status post I&D On ertapenem and vanc evaluated w surgical team * history of astrocytoma on Avastin therapy appreciate Dr Lassiter *Plan: dc today Subjective: Ivan is looking forward to being dc Objective: Vital Signs Temp Pulse Resp BP Pulse Ox 36.3 C 56 L 16 147/90 H 94 04/04/17 08:00 04/04/17 08:00 04/04/17 08:00 04/04/17 08:00 04/04/17 08:00 Microbiology 04/01/17 23:05 Gram Stain - Final Buttock - Eswab Laboratory Results 04/04/17 05:00 04/04/17 05:00 04/03/17 04/04/17 04/05/17 05:59 05:59 05:59 Intake Total 250 Output Total 1150 Balance -1150 250 PT 13.9 SEC (12.0-15.0) 04/02/17 04:25 INR 1.05 (0.83-1.16) 04/02/17 04:25 - Physical Exam Constitutional: no apparent distress, appears nourished, not in pain Eyes: PERRL Ears, Nose, Mouth, Throat: hearing normal Respiratory: no respiratory distress Skin: warm Musculoskeletal: generalized weakness Neurologic: AAOx3 Psychiatric: interacting appropriately ICD10 Worksheet Patient Problems: Problems Problem Status Onset Perirectal abscess Acute
--- NOTE | 2017-04-04 10:15 | PDIAF ---
- Diagnosis Diagnosis: perirectal abscess, falling, astrocytoma Code Status: Do Not Resuscitate - Medication Management Discharge Medications: Medications to Continue on Transfer Levothyroxine [Synthroid 125 mcg (*)] 125 mcg PO DAILY06 04/01/17 [Last Taken Unknown] Multivitamins [Multivitamin (*)] 1 each PO DAILY 04/01/17 [Last Taken Unknown] Rosuvastatin Calcium 5 mg PO HS 04/01/17 [Last Taken Unknown] levETIRAcetam [Levetiracetam] 500 mg PO BID 04/01/17 [Last Taken Unknown] Acetaminophen [Tylenol 325mg (*)] 650 mg PO Q4HRS PRN tab 04/04/17 [Last Taken Unknown] Melatonin [Melatonin 3 MG (*)] 3 mg PO HS tab 04/04/17 [Last Taken Unknown] Polyethylene Glycol 3350 [Miralax 17 gm (*)] 17 gm PO DAILY pkt 04/04/17 [Last Taken Unknown] levOFLOXACIN [levAQUIN (*)] 750 mg PO DAILY #4 tab 04/04/17 [Last Taken Unknown] metroNIDAZOLE [Flagyl 500 mg (*)] 500 mg PO TID #12 tab 04/04/17 [Last Taken Unknown] Discharge Medications: Refer to the Discharge Home Medication list for PRN reason. - Orders Services needed: Home Care, Physical Therapy, Occupational Therapy Home Care Face to Face: I certify that this patient was under my care and that I had the required [id number] encounter meeting the encounter requirements on the discharge day. My findings support the fact that the patient is homebound as defined in Home Care Face to Face Continued: CMS Chapter 7 Medicare Benefits Manual 30.1.1 , The condition of the patient is such that there exists a normal inability to leave home and consequently, leaving home would require a considerable and taxing effort. Diet Recommendation: no restrictions on diet Diet Texture: Regular Texture Diet Wound Care Instructions: Please change patient's perianal abscess I&D site dressing every other day. May irrigate with 10cc sterile saline or more if needed for adequate cleaning. Pack with 1/4 inch plain gauze or iodoform gauze. Dressing with gauze or ABD pad or even an unscented menstrual pad--may place in underwear and/or use tape. Thanks. - Follow Up Care Current Providers and Referrals: Solomon Shah MD [Primary Care Provider] - As per Instructions Pop Castañeda MD [Medical Doctor] - follow up in 1 week ()
--- NOTE | 2017-04-04 11:21 | GDS ---
[f rep st] DISCHARGE SUMMARY DISCHARGE DIAGNOSES: 1. Right perirectal abscess. 2. Astrocytoma. CONSULTATIONS: 1. Dr. Harvey Vega. 2. Dr. Porter Lassiter. 3. Dr. Pop Castañeda. HISTORY OF PRESENT ILLNESS: Briefly, the patient is a 61-year-old gentleman. He has a past medical history of astrocytoma. He presented to the emergency room with several days of pain in his buttock area. He was seen and evaluated by Dr. Castañeda and on April 02, he had an I and D of a perirectal abscess. He was treated with IV antibiotics. He will be discharged home on oral antibiotics and have wound care done at home. He will follow up with Dr. Castañeda. HOSPITAL COURSE: 1. Perirectal abscess. He was treated with vancomycin and ertapenem. He will be discharged on 4 more days of oral antibiotics and further follow up with Dr. Castañeda. 2. History of astrocytoma. He is on Avastin therapy. He has been falling more frequently at home. Dr. Lassiter came in and discussed future treatment options. He will follow up with Dr. Shah in regard to this. DISCHARGE CONDITION: Stable. Blood pressure is 147/90, O2 sats on room air 94% , respiratory rate is 16, pulse is 56, temperature is 36.3 Celsius. MEDICATIONS AT DISCHARGE: Please see the EMR. DISCHARGE INSTRUCTIONS: 1. He needs dressing changes every other day. These have been written out in detail. 2. Also reviewed the side effects of Levaquin. Also recommend that he do not drink any alcohol while on the Flagyl and take this as ordered. 3. If he develops fever, chills, chest pain, or shortness of breath, return to the ER. >30 minutes discharging and coordinating care. /[id number]/MODL MTDD
--- NOTE | 2017-04-04 12:36 | ASMTCMCOM ---
CM Note CM Note Notes: Spoke w/Pt's Una and family friend, pt will dc home w/[facility]iative care as outpatient and [facility] (RN/PT/OT). advised by RN and CHOCOLATE FINISHER that xtra caregivers would be helpful, Una will be contacting [facility]. CM explained to that Néstor from [facility] will be calling zurdo to schedule visit. Alicia at [facility] will also reach out to her. Date Signed: 04/04/2017 12:35 PM Electronically Signed By:Smiley Sotelo RN
--- NOTE | 2017-04-04 17:36 | ASDISCHSUM ---
Discharge Information Plan Status:Home with Home Health Medically Cleared to Leave: Discharge Date:04/04/2017 12:00 PM CM D/C Disposition:Home Health Service ADT D/C Disposition:Home Health Service Projected Discharge Date:04/04/2017 11:00 AM Transportation at D/C:Family Discharge Delay Reason: Follow-Up Date:04/04/2017 11:00 AM Discharge Slot: Final Diagnosis: Placement Information Referral Type:*Home Health Care Services Referral ID:[id number] Provider Name:[facility] Care Address 1:[address] [address] Address 2: City:[place] Selection Factors: State:[place] Referral Type:Palliative Care Referral ID:[id number] Provider Name:[facility] Address 1:[address] Phone Number: Address 2: Fax Number: [facility]:[place] Selection Factors: State:[place] Patient Contact Information Contact Name:JEANNINE Relationship: Address:[address] [place] [address] Work Phone: City:[place] Alternate Phone: State/Zip Code:[place] [address] Email: Financial Information Financial Class:[employer] [facility] Primary Plan Desc:[facility] Primary Plan Number:[id number] Secondary Plan Desc: Secondary Plan Number: Assessment Information [facility] Initial CM Assessment Living Arrangements What is your living Answers: With Spouse arrangement? Who do you live with? Type Of Residence What kind of residence do Answers: House you live in? Discharge Plan Comments Coordination Status Comments Notes: Pt is a 61 y/o man admitted for right gluteal cellulitis. Dr. Castañeda performed drainage of perirectal abscess. OT has been ordered and awaiting recommendations. Pt will most likely d/c independent when medically stable. CM available for d/c needs. Plan: Independent Date Signed: 04/02/2017 09:35 AM Electronically Signed By:SEAN Murray [facility] CM Progress Note CM Note CM Note Notes: Therapies have been ordered and they are recommending inpatient rehab. CM met w/ pt for dispo planning. Pt is not agreeable to going to SNF or inpatient rehab. Pt would like to d/c home. Pt is agreeable to continuing w/ [facility], PT, OT and RN. CM to follow. Plan: [facility], PT, OT, RN Date Signed: 04/02/2017 02:44 PM Electronically Signed By:SEAN Murray [facility] CM Progress Note CM Note CM Note Notes: Alicia from [facility] stopped by yesterday. Alicia report that pt was about to start palliative w/ them. Pt is being seen by Oncology today. Alicia reports that pts may be interested in hospice. CM spoke w/ Ann Baez NP regarding d/c POC. CM met w/ pt, and son for dispo planning. Pt reports that he would like to go home [facility]. Pt is still amendable to [facility] and palliative [facility]. Updates sent to [facility]. CM provided list of non skilled HC agencies. CM to follow. Plan: [facility], PT, OT, RN with private duty HC and [facility] palliative Date Signed: 04/03/2017 03:40 PM Electronically Signed By:SEAN Murray [facility] CM Progress Note CM Note CM Note Notes: Spoke w/Pt's Una and family friend, pt will dc home /[facility] Palliative care as outpatient and [facility] (RN/PT/OT). advised by RN and DRY FINISHER that xtra caregivers would be helpful, Una will be contacting [facility]. CM explained to that Néstor from [facility] will be calling zurdo to schedule visit. Alicia at [facility] will also reach out to her. Date Signed: 04/04/2017 12:35 PM Electronically Signed By:Smiley Sotelo RN Case Management Discharge Plan Note Case Management Discharge Discharge Order Complete? Answers: Yes Patient to Obtain Answers: via Family Medications Transportation Arranged Answers: Family/Friends Family Notified Answers: Yes Discharge Comments Notes: Spoke w/DRY FINISHER, final orders in, RN will call report. Alicia at [facility] and Alison at [facility] notified. Date Signed: 04/04/2017 12:44 PM Electronically Signed By:Smiley Sotelo RN Intervention Information
== END 2017-04-04 12:00 | disposition home health service (06) | DRG 394 ==
LOC: CED 13:58 → CEDHOLD 17:41 → F3E 20:05
PROVIDERS: ADMIT Internal Medicine; ATTEND Student in an Organized Health Care Education/Training Program
PROC: 0J990ZX Drainage of Buttock Subcutaneous Tissue and Fascia, Open Approach, Diagnostic (ICD-10-PCS; principal; 2017-04-01 21:48)
DX: K61.1 Rectal abscess (principal); C71.8 Malignant neoplasm of overlapping sites of brain; Z66 Do not resuscitate
CPT/HCPCS: 74177-PO; 80048-PO; 83605-PO; 85025-PO; 92523-GN; 97116-GP; 97161-GP; 97166-GO; 97530-GO; 97535-GO; J1100; J1170; J1335; J1650; J1885; J1956; J2405; J2704; J3010; J3370; Q9967